=== PATIENT | female | born 1990 | race Caucasian/White ===

== ENCOUNTER → 2017-10-06 | Outpatient (CLI) | payer OTHER ==
[~2017-10-06] MED LIST: CEFP500T32 PO; HYDR-2954 PO; HYDRO25 PO; IOPAMIDOL 76% 75 ML INFUS BTL 75 ML ONE; NORG1TAB73 PO; NS 0.9% 50 ML VIAL 50 ML ONE; ONDA4TAB PO; OXYC-854 PO; PRE20 PO; R-TANPT PO; [UNRECOGNIZED DRUG - CODE] PO
--- NOTE | 2017-10-06 10:43 | RADIOLOGY IMAGING REPORT ---
FACILITY: [facility] - [place], [place] PATIENT NAME: Joselyn Romero : 1990 MR: [id number] V: [id number] EXAM DATE: ORDERING PHYSICIAN: JENNIFER KC TECHNOLOGIST: Location: [facility] - [place] Patient: Joselyn Romero : 1990 Visit/Account:[id number] Date of Sevice: 10/06/2017 NECK SOFT TISSUE W W/O CONTR Provided history: Enlarged tender right neck lymph node Additional pertinent history: none TECHNIQUE: Spiral scan was obtained from the hard palate through the upper chest without and with i ntravenous contrast Contrast dose: 75 mL Isovue 370 intravenously. One of the following dose optimization techniques was utilized in the performance of this exam: Autom ated exposure control; adjustment of the mA and/or kV according to the patient's size; or use of an i terative reconstruction technique. Specific details can be referenced in the facility's radiology CT exam operational policy. COMPARISON STUDIES: none FINDINGS: Visualized orbits / brain / paranasal sinuses: negative Nasal cavity / nasopharynx: negative Oral cavity / oropharynx / hypopharynx: negative Parapharyngeal / jd edwards spaces: negative Major salivary glands: The right submandibular gland is displaced anteriorly by a circumscribed roun d mass measuring 2.4 x 2.5 cm transverse diameter and 2.8 cm craniocaudal. Central contents measure 36 Hounsfield units prior to IV contrast and 38 units postcontrast, representing nonenhancement. The re is a minimally perceptible thin rim. Caudal to the mass, there is a soft tissue structure that I believe is a displaced lymph node and not associated with the mass itself. It displaces the major ne urovascular bundle posteriorly and slightly medially. It is located deep to the sternocleidomastoid muscle. Elsewhere in the neck, there are circumscribed benign-appearing reactive lymph nodes. No ring-enhanc ing or central necrotic lymph nodes. 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 I think a necrotic lymph node is much less lik [place]. Rarely, a cystic schwannoma can produce a similar appearance however I would expect some eviden ce of enhancement centrally. Report Dictated By: Vlad Delong MD at 10/06/2017 10:22 AM Report E-Signed By: Vlad Delong MD at 10/06/2017 10:39 AM WSN:[id number]
== END ==
LOC: CT 02:47
PROVIDERS: ATTEND Surgery
DX: R22.9 Localized swelling, mass and lump, unspecified (principal)
CPT/HCPCS: 70492; J7050; Q9967

== ENCOUNTER 2017-10-12 00:31 | Day surgery (SDC) | payer OTHER ==
[~2017-10-12] VITALS: Ht 157.5 cm; Wt 62.1 kg
[2017-10-12] VITALS (7 sets, daily range): BP systolic 110–130; BP diastolic 70–83
[~2017-10-12 00:31] MED LIST changes: -IOPAMIDOL 76% 75 ML INFUS BTL 75 ML ONE; -NS 0.9% 50 ML VIAL 50 ML ONE; +OMEP-125 PO
[2017-10-12 06:40] LABS: PLATELET COUNT, AUTOMATED 343 K/uL (150-450)
[2017-10-12] MEDS ORDERED: LIDOCAINE/SOD BICARB 8.4% SYR ID ONE (06:45)
[2017-10-12] MEDS ORDERED: NORMOSOL R SOLN(*) 1000 ML BAG 1,000 ML IV PRN (06:45)
[2017-10-12] MEDS ORDERED: MIDAZOLAM 2 MG/2 ML VIAL IVP PRN (06:45)
[2017-10-12] MEDS ORDERED: AMPICILLIN/SULBACT (*) 3 GM VL 3 GM in NS(*) 0.9% 100 ML BAG 100 ML IVPB ONE (06:45)
[2017-10-12] MEDS ORDERED: fentaNYL CITR 250 MCG/5 ML AMP ONE (07:14)
[2017-10-12] MEDS ORDERED: LIDOCAINE MPF 1% 5 ML VIAL ONE (07:14)
[2017-10-12] MEDS ORDERED: PROPOFOL EMUL(*) 10MG/ML 20 ML 20 ML ONE (07:14)
[2017-10-12] MEDS ORDERED: LIDO/EPI 1% MDV 1:100,000 20ML INFIL ONE (07:23)
[2017-10-12] MEDS ORDERED: BACITRACIN OINT 15 GM TUBE TP ONE (07:23)
[2017-10-12] MEDS ORDERED: DEXAMETHASONE SOD 4 MG/ML VIAL ONE (07:49)
[2017-10-12] MEDS ORDERED: ONDANSETRON 4 MG/2 ML VIAL ONE (07:51)
[2017-10-12] MEDS ORDERED: SUCCINYLCHOL CHL 100MG/5ML SYR IVP ONE (07:55)
[2017-10-12] MEDS ORDERED: fentaNYL CITR 100 MCG/2 ML AMP ONE ×2 (08:40→09:39)
[2017-10-12] MEDS ORDERED: AMOX-559 PO (09:21)
[2017-10-12] MEDS ORDERED: HYDR-4309 PO (09:21)
[2017-10-12] MEDS ORDERED: APAP/HYDROCODONE 325/5 TAB PO ONE ×2 (10:50→11:40)
--- NOTE | 2017-10-12 15:28 | OPERATIVE REPORT 1 ---
EVENT DATE: October 12, 2017 SURGEON: Farhan Palm MD ANESTHESIOLOGIST: Brett Carnes MD ANESTHESIA: General endotracheal anesthesia. 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 PREOPERATIVE DIAGNOSIS Right type 2 branchial cleft cyst. POSTOPERATIVE DIAGNOSIS Right type 2 branchial cleft cyst. INDICATIONS Please refer to the preoperative note. DESCRIPTION OF PROCEDURE The patient was positively identified in the preoperative area. She was accompanied there by both parents. Risks were again explained, including but were not limited to bleeding, infection, recurrence, injury to surrounding nerves and/or vessels, including but not limited to the marginal mandibular nerve, accessory nerve, internal jugular vein, carotid artery, and those associated with anesthesia. She acknowledged understanding of those risks. She was then brought back to the operative suite and laid supine on the operative table. Anesthesia was administered. Once asleep, the patient was positioned and prepped and draped in the usual sterile fashion. An incision was planned in a favorable neck crease overlying the right neck mass greater than 2 fingerbreadths below the angle of the mandible to preserve the marginal mandibular nerve. This measured approximately 5 cm in length. Lidocaine 1% with epinephrine 1 mL was then infiltrated. The aforementioned incision was then made with a 15 blade. The underlying subcutaneous tissue was then dissected with Bovie electrocautery. The platysma muscle was encountered and dissected with Bovie electrocautery. I then bluntly dissected down onto the anterior margin of the cyst. The sternocleidomastoid muscle was retracted posteriorly. The cyst was then carefully removed from the surrounding connective tissue. I then traced the cyst to its terminis superiorly. This was then clamped and cut. This was sent for permanent pathology. The superior stalk was then closed with a suture ligature with 3-0 silk. The wound was then copiously irrigated with normal saline solution. A Valsalva maneuver was performed. Hemostasis was assumed. The platysma was then reapproximated with an interrupted chromic suture. The skin was then closed in a multilayer fashion. The patient was then returned to Anesthesia for emergence. Estimated blood loss was 25 mL. There were no complications. [facility]
== END 2017-10-12 10:24 | disposition home or self-care (01) ==
LOC: OR 00:31
PROVIDERS: ATTEND Otolaryngology
DX: Q18.0 Sinus, fistula and cyst of branchial cleft (principal)
CPT/HCPCS: 36415; 42815; 81025; 85025; 88305; J0295; J0330; J1100; J2001; J2250; J2405; J2704; J3010; J7050

== ENCOUNTER 2017-10-14 03:44 | Emergency (ER) | payer OTHER ==
[~2017-10-14] VITALS: Ht 157.5 cm; Wt 62.1 kg
[~2017-10-14 03:44] MED LIST changes: +AMOX-559 PO; +HYDR-4309 PO
--- NOTE | 2017-10-14 03:54 | ER Report ---
History and Physical Time Seen By MD: 03:53 Hx. of Stated Complaint: PATIENT STATES SHE WOKE UP PUKING THIS MORNING AROUND 0230 PUKING, SHE RECENTLY HAD A CYST REMOVED FROM HER BRACHIAL CLEFT ON MONDAY, SHE IS WORRIED ABOUT POPPING OUT A STICH WHILE VOMITING LIKE THIS. HPI/ROS CHIEF COMPLAINT: nausea/vomiting and increased pain in neck HISTORY OF PRESENT ILLNESS: This is a 27 year old female. She is having vomiting that started suddenly at 0230 this morning. She is 2 days post-op from brachial cleft cyst surgery by Dr. Palm and Dr. Kc. She has been taking pain medicine (Endocet for a day, then Lortab). These have been working well for her. No vomiting until this morning. No fevers or chills. The pain increased after the vomiting. She is worried that she could have a stick pop open. She had some Zofran at home, but was in pain and severe vomiting that she decided to come in the the ER for treatment. She has been drinking fluids and eating soft foods. Post-operative pain with swallowing. Hoarse voice as well after the surgery, although this is improving. Allergies: Coded Allergies: No Known Drug Allergies (Verified , 06/14/10) Home Meds Active Scripts Promethazine Hcl (PROMETHAZINE HCL) 25 Mg Tablet, 25 MG PO Q8H Y for NAUSEA/ VOMITING, #20 TAB 0 Refills Prov:JIM BATISTA MD 10/14/17 Ondansetron (ZOFRAN ODT) 4 Mg Tab.rapdis, 4 MG PO Q4H Y for NAUSEA/VOMITING, # 20 TAB.TODD 0 Refills Prov:JIM BATISTA MD 10/14/17 Ondansetron (ZOFRAN ODT) 4 Mg Tab.rapdis, 1 TAB PO TID Y for NAUSEA/VOMITING, # 10 TAB.TODD 0 Refills Prov:JENNIFER KC MD 10/04/17 Reported Medications Amoxicillin/Pot Clav 875-125 Mg Tab (AUGMENTIN 875-125 TABLET) 1 Each Tablet, 1 TAB PO BID for 7 Days, #14 TAB 10/12/17 Hydrocodone Bit/Acetaminophen (NORCO 5-325 TABLET) 1 Each Tablet, 1-2 TAB PO Q4H Y for PAIN, TAB DO NOT TAKE NORCO AND ENDOCET TOGETHER OR ANY OTHER PRODUCTS CONTAINING ACETAMINOPHEN (TYLENOL). BOTH PRODUCTS CONTAIN ACETAMINOPHEN 10/12/17 Omeprazole (OMEPRAZOLE) 20 Mg Capsule.dr, 1 CAP PO QDAY, CAP 10/11/17 Norgestrel-Ethinyl Estradiol (Lo-Ovral-21) 1 Each Tablet, 1 EACH PO DAILY, 0 Refills 06/14/10 Discontinued Scripts Oxycodone Hcl/Acet 5/325 Mg (ENDOCET 5-325 TABLET) 1 Each Tablet, 1-2 TAB PO Q4H Y for PAIN, #30 TAB 0 Refills Prov:JENNIFER KC MD 10/04/17 Reviewed Nurses Notes: Yes Hx Smoking: No Smoking Status: Never Smoker Hx Substance Use Disorder: No Hx Alcohol Use: Yes Constitutional Vital Sign - Last 24 Hours 10/14/17 10/14/17 10/14/17 10/14/17 03:49 03:59 04:05 04:14 Temp 98.2 Pulse 96 106 89 Resp 16 B/P (MAP) 135/88 122/83 (96) Pulse Ox 96 92 O2 Delivery Room Air 10/14/17 10/14/17 10/14/17 10/14/17 04:29 04:30 04:44 04:49 Pulse 101 91 ??? B/P (MAP) 128/85 (99) Pulse Ox 94 96 97 Physical Exam General Appearance: The patient is alert. No acute distress. Eyes: Pupils are equal, round. No pallor, injection or icterus. ENT: Mucous membranes are moist. Normal oral mucosa. Posterior oropharynx is normal. Difficulty opening her mouth because of pain. Neck: Supple. Incision site of the right neck shows no erythema and is intact. Is tender to palpation over the area. Mild swelling generalized in that side of the neck. Respiratory: Lungs are clear to auscultation. Cardiovascular: Regular rate and rhythm. No murmurs, gallops or rubs. Neurological: Alert and oriented x3. Skin: Warm and dry. Musculoskeletal: No pain in the cervical spine. DIFFERENTIAL DIAGNOSIS: After history and physical exam, differential diagnosis was considered for post operative infection, or other nonspecific cause of nausea and vomiting. Medical Decision Making Data Points Result Diagram: 10/14/17 0403 10/14/17 0403 Laboratory Hematology Test 10/14/17 04:03 Red Blood Count 4.57 M/uL (4.17-5.56) Mean Corpuscular Volume 91.7 fL (80.0-96.0) Mean Corpuscular Hemoglobin 32.0 pg (26.0-33.0) Mean Corpuscular Hemoglobin Concent 34.9 g/dL (32.0-36.0) Red Cell Distribution Width 12.1 % (11.5-14.5) Mean Platelet Volume 7.8 fL (7.2-11.1) Neutrophils (%) (Auto) 81.7 % (39.4-72.5) Lymphocytes (%) (Auto) 11.1 % (17.6-49.6) Monocytes (%) (Auto) 6.3 % (4.1-12.4) Eosinophils (%) (Auto) 0.4 % (0.4-6.7) Basophils (%) (Auto) 0.5 % (0.3-1.4) Nucleated RBC Relative Count (auto) 0.0 /100WBC Neutrophils # (Auto) 10.5 K/uL (2.0-7.4) Lymphocytes # (Auto) 1.4 K/uL (1.3-3.6) Monocytes # (Auto) 0.8 K/uL (0.3-1.0) Eosinophils # (Auto) 0.0 K/uL (0.0-0.5) Basophils # (Auto) 0.1 K/uL (0.0-0.1) Nucleated RBC Absolute Count (auto) 0.00 K/uL Sodium Level 136 mmol/L (137-145) Potassium Level 4.1 mmol/L (3.5-5.0) Chloride Level 103 mmol/L (98-107) Carbon Dioxide Level 25 mmol/L (22-31) Blood Urea Nitrogen 9 mg/dl (7-18) Creatinine 0.90 mg/dl (0.52-1.04) Glomerular Filtration Rate Calc > 60.0 Random Glucose 120 mg/dl (75-110) Calcium Level 8.8 mg/dl (8.4-10.2) Total Bilirubin 0.6 mg/dl (0.2-1.3) Aspartate Amino Transf (AST/SGOT) 18 U/L (0-35) Alanine Aminotransferase (ALT/SGPT) 29 U/L (0-56) Alkaline Phosphatase 33 U/L (0-126) C-Reactive Protein 5.7 mg/dl (<1.0) Total Protein 7.7 gm/dl (6.3-8.2) Albumin 3.9 g/dl (3.5-5.0) Chemistry Test 10/14/17 04:03 White Blood Count 12.9 k/uL (4.5-11.0) Red Blood Count 4.57 M/uL (4.17-5.56) Hemoglobin 14.6 g/dL (12.0-16.0) Hematocrit 41.9 % (34.0-47.0) Mean Corpuscular Volume 91.7 fL (80.0-96.0) Mean Corpuscular Hemoglobin 32.0 pg (26.0-33.0) Mean Corpuscular Hemoglobin Concent 34.9 g/dL (32.0-36.0) Red Cell Distribution Width 12.1 % (11.5-14.5) Platelet Count 288 K/uL (150-450) Mean Platelet Volume 7.8 fL (7.2-11.1) Neutrophils (%) (Auto) 81.7 % (39.4-72.5) Lymphocytes (%) (Auto) 11.1 % (17.6-49.6) Monocytes (%) (Auto) 6.3 % (4.1-12.4) Eosinophils (%) (Auto) 0.4 % (0.4-6.7) Basophils (%) (Auto) 0.5 % (0.3-1.4) Nucleated RBC Relative Count (auto) 0.0 /100WBC Neutrophils # (Auto) 10.5 K/uL (2.0-7.4) Lymphocytes # (Auto) 1.4 K/uL (1.3-3.6) Monocytes # (Auto) 0.8 K/uL (0.3-1.0) Eosinophils # (Auto) 0.0 K/uL (0.0-0.5) Basophils # (Auto) 0.1 K/uL (0.0-0.1) Nucleated RBC Absolute Count (auto) 0.00 K/uL Glomerular Filtration Rate Calc > 60.0 Calcium Level 8.8 mg/dl (8.4-10.2) Total Bilirubin 0.6 mg/dl (0.2-1.3) Aspartate Amino Transf (AST/SGOT) 18 U/L (0-35) Alanine Aminotransferase (ALT/SGPT) 29 U/L (0-56) Alkaline Phosphatase 33 U/L (0-126) C-Reactive Protein 5.7 mg/dl (<1.0) Total Protein 7.7 gm/dl (6.3-8.2) Albumin 3.9 g/dl (3.5-5.0) ED Course/Re-evaluation Clinical Indication for ER IV: Hydration, IV Access ED Course The patient felt much better after Morphine and Zofran and a liter of Normal Saline. Labs show a mildly elevated white count and an elevated CRP. Her symptoms do not seem out of what you could expect in the post-operative period. She feels better now. We discussed options including treatment now and what to watch for that would mean the need to return and consideration of a CT scan of the neck. Decision to Disposition Date: Oct 14, 2017 Decision to Disposition Time: 04:36 Depart Departure Latest Vital Signs Vital Signs Date Time Temp Pulse Resp B/P (MAP) Pulse Ox O2 Delivery O2 Flow Rate FiO2 10/14/17 04:49 ??? 97 10/14/17 04:30 128/85 (99) 10/14/17 03:49 98.2 16 Room Air Impression: Primary Impression: Nausea & vomiting Condition: Improved Disposition: HOME OR SELF-CARE Referrals: DEMOND BERNABE (PCP) New Scripts Promethazine Hcl (PROMETHAZINE HCL) 25 Mg Tablet 25 MG PO Q8H Y for NAUSEA/VOMITING, #20 TAB 0 Refills Prov: JIM BATISTA MD 10/14/17 Ondansetron (ZOFRAN ODT) 4 Mg Tab.rapdis 4 MG PO Q4H Y for NAUSEA/VOMITING, #20 TAB.TODD 0 Refills Prov: JIM BATISTA MD 10/14/17 Patient Instructions: Acute Nausea and Vomiting (ED) Additional Instructions: Keep using Zofran 4mg oral dissolving tablets. You can take one every 4hours as needed. We will also provide you with a prescription for phenergan 25mg tablets, take one every 8 hours as needed for nausea/vomiting. Return for re-evaluation if you start having fevers/chills, worsening pain and worsening nausea despite the medications. Follow-up with your surgeons as planned. Problem Qualifiers Primary Impression: Nausea & vomiting Vomiting type: unspecified Vomiting Intractability: non-intractable Qualified Codes: R11.2 - Nausea with vomiting, unspecified JIM BATISTA MD Oct 14, 2017 03:54
[2017-10-14] MEDS ORDERED: ONDANSETRON 4 MG/2 ML VIAL ONE (03:57)
[2017-10-14] MEDS ORDERED: NS(*) 0.9% 1000 ML BAG 1,000 ML IV ONE (04:00)
[2017-10-14] MEDS ORDERED: MORPHINE 4 MG/ML SYR IVP ONE (04:00)
[2017-10-14 04:18] LABS: PLATELET COUNT, AUTOMATED 288 K/uL (150-450)
[2017-10-14 04:30] VITALS: BP 128/85
[2017-10-14] MEDS ORDERED: ONDA4TAB PO (04:41)
[2017-10-14] MEDS ORDERED: PROM-110 PO (04:41)
== END 2017-10-14 04:52 | disposition home or self-care (01) ==
LOC: ER 04:00
DX: R11.2 Nausea with vomiting, unspecified (principal)
CPT/HCPCS: 85025; 86140; 96361; 96374; 96375; 99284; J2270; J2405; J7030; 82040; 82247; 82310; 82374; 82435; 82565; 82947; 84075; 84132; 84155; 84295; 84450; 84460; 84520